=== PATIENT | female | born 1965 | race Caucasian/White ===

== ENCOUNTER → 2021-12-26 10:59 | Outpatient (CLI) | payer OTHER, SELFPAY ==
--- NOTE | 2021-12-26 11:02 | DI.RAD.S_ITS ---
PROCEDURE: XR RIBS LT MIN 3V W CXR1V INDICATIONS: left chest wall pain after lifting, heard pop TECHNIQUE: 2 views of the left ribs were acquired, along with a single view chest. COMPARISON: None. FINDINGS: Surgical changes and devices: None. Bones and chest wall: No fractures or dislocations. No suspicious bony lesions. Overlying soft tissues appear unremarkable. Lungs and pleura: No pleural effusions or pneumothorax. Lungs appear clear. Mediastinum: Mediastinal contours appear normal. Heart size is normal. IMPRESSION: No displaced rib fractures visualized. Dictated by: Riddhi Chau M.D. on 12/26/2021 at 11:41 Approved by: Riddhi Chau M.D. on 12/26/2021 at 11:41
== END ==
PROVIDERS: PCP Physician Assistant; Referring Provider Physician Assistant; Visit Provider Physician Assistant
DX: R07.89 Other chest pain (principal)
CPT/HCPCS: 71101